=== PATIENT | female | born 1970 | race Caucasian/White ===

== ENCOUNTER → 2016-08-16 | Outpatient (CLI) | payer OTHER ==
[~2016-08-16] MED LIST: ALBU1NEB10 INH; ALBUAER19 INH; AMPH30TA2 PO; BUME1TAB PO; CIPR-255 PO; CLOB1OIN2 TD; ERGO1CAP35 PO; GADAVIST IV PRN; HYDR-4079 PO; HYDR0.5T PO; LEVO200T PO; LIOT50TA PO; METO25TA3 PO; RTXI500; VNFI; [UNRECOGNIZED DRUG - CODE] TD
--- NOTE | 2016-08-17 15:18 | MAMMOGRAPHY REPORT ---
BREAST MRI OF BOTH BREASTS : 08/16/2016 CLINICAL HISTORY: 45-year-old woman with history of prior reduction mammoplasty and left breast biop sy. She reports new microcalcifications found in February 2016, on a CT of the chest. Personal hist ory of cancers elsewhere. COMPARISON: Comparison is made to exams dated: 06/11/2015 mammogram, 06/11/2015 ultrasound, and 6 breast MRI - [facility]. Also chest/abdomen/pelvis CT images dated 02/18/2016. TECHNIQUE: Using a 1.5 Linda magnet and dedicated breast coil, multisequence axial images were obtai valery through the breasts. After uneventful IV administration of 8 mL of Gadavist, dynamic multiphase contrast-enhanced axial images, and sagittal postcontrast were obtained. Temporal subtraction axia l images and 3-D MIP images are provided. Everything was then reviewed on a 3-D workstation, [employer]. FINDINGS: Right breast: There is evidence of prior reduction mammoplasty and mild background parenchymal enhan cement. The degree of enhancement has decreased compared to the 10/15/2015 and 04/29/2020 breast MR Is. Currently, no suspicious enhancing mass, non-mass enhancement, suspicious kinetics or unexpecte d architectural distortion are seen in the right breast. There is no focal skin thickening or nippl e retraction. The retromammary fat is intact. Left breast: There is evidence of prior reduction mammoplasty and mild background parenchymal enhanc ement. There is susceptibility artifact in the 1:00 anterior left breast, denoting the biopsy marke r clip at the site of prior benign biopsy. The degree of enhancement has decreased compared to the 10/15/2015 and 04/29/2020 breast MRIs. Currently, no suspicious enhancing mass, non-mass enhancemen t, suspicious kinetics or unexpected architectural distortion are seen in the right breast. There i s no focal skin thickening or nipple retraction. The retromammary fat is intact. No suspicious axillary, subpectoral or internal mammary lymphadenopathy is seen bilaterally. An outside chest CT dated 02/18/2016 was reviewed to assess for the reported "new breast microcalcif ications" identified on that exam. It should be noted that microcalcifications are rarely evident o n CT. The only density I can identify on that exam is a metallic biopsy marker in the 1:[address] It is unclear if this represents the reported new calcifications, as the outside radiology repor t is not available, and no images were annotated. IMPRESSION: ACR BI-RADS CATEGORY 2: BENIGN 1. Stable bilateral breast MRI, without MRI evidence of malignancy bilaterally. 2. Stable postbiopsy changes in the 1:00 anterior left breast. 3. Based on current available records, the patient is overdue for annual bilateral screening mammog lilliam, as the last mammogram was performed 06/11/2015. Diagnostic mammography would be the test of choice for evaluating microcalcifications, with spot magnification views, and is also the only prove n modality for reducing breast cancer mortality. The patient will receive written notification of the results. Margaret Brownlee M.D. ay/:08/16/2016 22:59:21 Hot Tar Roofer Helper: forming tube selector, [facility] letter sent: Normal 1/2 BI-RADS Code: ACR BI-RADS Category 2: Benign
== END | disposition home or self-care (01) ==
LOC: C.MRI 07:16
PROVIDERS: ATTEND Obstetrics & Gynecology
DX: R92.0 Mammographic microcalcification found on diagnostic imaging of breast (principal); Z85.9 Personal history of malignant neoplasm, unspecified

== ENCOUNTER → 2017-03-23 | Outpatient (CLI) | payer OTHER ==
--- NOTE | 2017-03-23 12:21 | DIAGNOSTIC IMAGING REPORT ---
LEFT ELBOW MRI HISTORY: Left elbow pain. TECHNIQUE: Multiplanar multisequence MRI of the left elbow was performed both before and after the intravenous administration of contrast. COMPARISON STUDY: None. FINDINGS: No fracture or dislocation within the left elbow. Normal marrow signal intensity seen throughout the visit osseous structures. No significant elbow effusion. Cartilage spaces are maintained for age. No soft tissue edema. The radial and collateral ligaments are intact. The ulnar nerve demonstrates a normal signal intensity and caliber. The biceps tendon, common flexor tendon, and triceps tendon are normal in course, caliber, and signal intensity. There is focal thickening of the proximal common extensor tendon. No significant surrounding edema to suggest an acute process. Therefore, this likely represents a chronic tendinopathy. No abnormal enhancement. IMPRESSION: 1. Focal thickening at the proximal common extensor tendon consistent with a chronic tendinopathy. 2. The remaining structures of the elbow are within normal limits including the biceps tendon. Electronically signed by: Ron Combs M.D. 03/23/2017 12:20 PM Dictated Date/Time: 03/23/2017 12:12 PM
== END | disposition home or self-care (01) ==
LOC: C.MRI 10:36
PROVIDERS: ATTEND Family Medicine
DX: G56.22 Lesion of ulnar nerve, left upper limb (principal); G89.29 Other chronic pain; M25.522 Pain in left elbow

== ENCOUNTER → 2017-04-25 | Outpatient (CLI) | payer OTHER ==
[~2017-04-25] MED LIST changes: -GADAVIST IV PRN
--- NOTE | 2017-04-25 15:09 | MAMMOGRAPHY REPORT ---
BILATERAL DIGITAL DIAGNOSTIC MAMMOGRAM TOMOSYNTHESIS WITH CAD: 04/25/2017 CLINICAL HISTORY: 46-year-old woman with a personal history of cancer elsewhere and bilateral reducti on mammoplasty presents for bilateral annual mammography. She has a history of prior benign left mariusz ast stereotactic biopsy with subsequent reaction to the biopsy marker clip which was then ultimately removed via stereotactic biopsy in December 2016. Patient reports improved symptoms after removal. Qu estionable history of breast calcifications noted on a CT of the chest performed in February 2016. TECHNIQUE: Bilateral breast tomosynthesis in addition to standard 2D mammography was performed. Curre nt study was also evaluated with a Computer Aided Detection (CAD) system. COMPARISON: Comparison is made to exams dated: 10/28/2014 mammogram, 06/11/2015 mammogram, 06/11/2015 ult rasound, 10/15/2015 breast MRI, and 08/16/2016 breast MRI - [facility]. BREAST COMPOSITION: There are scattered areas of fibroglandular density in both breasts. FINDINGS: A dumbbell shaped biopsy marker clip is no longer seen in the upper outer anterior left mariusz ast, concordant with the clinical history of recent removal of the marker clip via stereotactic biops y. There are 2 benign round microcalcifications in the right breast. No suspicious grouping or clus ter of microcalcifications are identified bilaterally. There is evidence of prior reduction mammopla sty, with stable asymmetries in each breast. No suspicious mass, developing asymmetry, focal area of architectural distortion or cluster of suspicious microcalcifications is seen. IMPRESSION: ACR BI-RADS CATEGORY 2: BENIGN 1. Evidence of prior surgery in the breasts, without mammographic evidence of malignancy. Recommend bilateral tomosynthesis mammography in one year. 2. Would also recommend bilateral breast MRI now to ensure 2 years of stability based on findings fr om the initial outside breast MRI which was performed in April 2015, which can confirm benignity o f those findings if there is no change. These results and recommendations were discussed with the patient at the time of the exam. Approximately 10% of breast cancers are not detected with mammography. A negative mammographic report should not delay biopsy if a clinically suggestive mass is present. Margaret Brownlee M.D. ay/:04/25/2017 12:35:32 Drivability Technician: Nawaf CHARLES(Dennis)(Pallavi), [facility] letter sent: Normal 05/10 BI-RADS Code: ACR BI-RADS Category 2: Benign
== END | disposition home or self-care (01) ==
LOC: C.MAMM 11:15
PROVIDERS: ATTEND Family Medicine
DX: N63.20 Unspecified lump in the left breast, unspecified quadrant (principal); Z98.890 Other specified postprocedural states; C83.11 Mantle cell lymphoma, lymph nodes of head, face, and neck

== ENCOUNTER → 2017-05-23 | Outpatient (CLI) | payer OTHER ==
[~2017-05-23] MED LIST changes: +GADAVIST IV PRN
--- NOTE | 2017-05-24 07:52 | MAMMOGRAPHY REPORT ---
BREAST MRI OF BOTH BREASTS : 05/23/2017 CLINICAL HISTORY: 46-year-old woman with a history of reduction mammoplasty and prior benign biopsy i n the 1:00 left breast. Recently, the patient had the metallic biopsy marker clip removed via a ster eotactic biopsy. Personal history of cancers elsewhere and family history of breast cancer. COMPARISON: Comparison is made to exams dated: 10/28/2014 mammogram, 06/11/2015 mammogram, 06/11/2015 ult rasound, 10/15/2015 breast MRI, 08/16/2016 breast MRI, and 04/25/2017 mammogram - [facility]. TECHNIQUE: Using a 1.5 Linda magnet and dedicated breast coil, multisequence axial images were obtain ed through the breasts. After uneventful IV administration of 8 mL of Gadavist, dynamic multiphase c ontrast-enhanced axial images, and sagittal postcontrast were obtained. Temporal subtraction axial i mages and 3-D MIP images are provided. Everything was then reviewed on a 3-D workstation, [employer]. FINDINGS: Right breast: There is mild to moderate background parenchymal enhancement. There is evidence of victor manuel or reduction mammoplasty. The degree of background enhancement is stable to decreased comparing to p rior MRIs dating back to 2014. No new suspicious enhancing masses, non-mass enhancement or suspiciou s kinetics are identified in the right breast. No focal skin thickening or nipple retraction. The r etromammary fat is intact. No suspicious right axillary lymphadenopathy. Left breast: There is mild to moderate background parenchymal enhancement. There is evidence of prio r reduction mammoplasty. The degree of background enhancement has decreased comparing to prior MRIs. Susceptibility artifact is no longer identified in the 1:00 anterior left breast, concordant with t he clinical history of biopsy marker clip removal. There is an oval circumscribed enhancing focus in the lower outer middle one third of the left breast measuring 4.8 x 3.1 x 2.8 mm that is increasingl y conspicuous comparing to prior MRIs (best seen on axial page 81/116 and sagittal page 21/120). How ever, in retrospect when comparing back to the prior MRIs performed at this institution and outside [place] dated 04/29/2015, this focus has been present and stable dating back to 04/29/2015 and with greate r than 2 years of stability is considered benign. No new suspicious enhancing mass, non-mass enhance ment or suspicious kinetics are identified in the left breast. No focal skin thickening or nipple re traction. The retromammary fat is intact. No suspicious left axillary lymphadenopathy. IMPRESSION: ACR BI-RADS CATEGORY 2: BENIGN Stable postsurgical changes in the breasts, without MRI evidence of malignancy. No suspicious axilla ry adenopathy identified bilaterally. Continuation of annual screening mammography is recommended. Depending on personal risk factors, the patient may also be a candidate for screening breast MRI. The patient will receive written notification of the results. Margaret Brownlee M.D. ay/:05/23/2017 21:33:47 Sounding Device Operator: industrial relations specialist, [facility] letter sent: Normal 1/2 BI-RADS Code: ACR BI-RADS Category 2: Benign
== END | disposition home or self-care (01) ==
LOC: C.MRI 06:44
PROVIDERS: ATTEND Family Medicine
DX: Z98.86 Personal history of breast implant removal (principal)